=== PATIENT | male | born 1955 | race Caucasian/White ===

== ENCOUNTER 2016-06-11 14:25 | Observation (INO) | payer OTHER ==
[~2016-06-11] VITALS: Ht 172.7 cm; Wt 85.1 kg
[~2016-06-11 14:25] MED LIST: ASPCH81; EFF50 PO; MULT-506 PO; SIMV40TA2 PO
[2016-06-11 14:42] VITALS: Ht 172.7 cm; Wt 85.1 kg
[2016-06-11] MEDS ORDERED: LORA-741 PO (14:43)
[2016-06-11] MEDS ORDERED: SIMV20TA2 PO (14:43)
[2016-06-11] MEDS ORDERED: AMLO-110 PO (14:43)
[2016-06-11] MEDS ORDERED: FLUT0.15 NAE (14:43)
[2016-06-11] MEDS ORDERED: SODIUM CHLORIDE 0.9% 1000ML 1,000 ML IV STA (15:01)
[2016-06-11] MEDS ORDERED: LORAZEPAM 0.5 MG TAB SL STA (15:04)
[2016-06-11 15:16] LABS: BASO % 0.4 %; BASO ABS # 0.03 K/uL (0-0.2); COMPLETE YES; EOS % 1.7 %; HEMATOCRIT 42.9 % (42-52); IG% 0.3 %; LYMPH % 43.8 %; LYMPH ABS # 3.06 K/uL (1.2-3.4); MEAN CELL VOLUME 83.8 fL (80-100); MEAN CORPUSCULAR HEMOGLOBIN 29.7 pg (25-34); MEAN CORPUSCULAR HGB CONC 35.4 g/dl (32-36); MEAN PLATELET VOLUME 9.7 fL (7.4-10.4); MONO % 7.3 %; NEUT % 46.5 %; PLATELET COUNT 228 K/uL (130-400); RED BLOOD COUNT 5.12 M/uL (4.7-6.1); WHITE BLOOD COUNT 6.99 K/uL (4.8-10.8)
--- NOTE | 2016-06-11 15:22 | EMERGENCY ROOM VISIT NOTE ---
History First contact with patient: 14:38 Chief Complaint: SYNCOPE Stated Complaint: SYNCOPE Nursing Triage Summary: Patient was at the gym when he fell and had a syncople episode, gym staff reports patient fell and hit his head off the floor, when awoke patient reported severe chest pain and SOB, patient arrived ALS and is alert to person place and year but does not follow commands and has slurred speech and is stuttering having trouble finding words. When ALS arrived patient blood pressure was 88 systolically 800ml of fluid was adminitered enroute to [facility]. History of Present Illness The patient is a 61 year old male who presents to the Emergency Room with complaints of syncope. Patient is having difficulty communicating when I obtained the history, so collateral was obtained from daughter. Daughter notes that patient was weightlifting at the gym today, when all of a sudden he felt lightheaded. He proceeded to sit down. When he went to stand up , he lost conciousness and fell down. It is unclear whether he hit his head. At presents, he is having difficulty communicating. Nursing staff notes that he cannot vocalize anything apart from name and date and that he is unable to follow commands. Daughter notes that he has had syncope in the past but has never had any residual deficits. Daughter also notes that when he first arrived , he seems to have weakness on the left side of his face. At the time of his syncope, ambulance was called and he was brought to the ED. EMS notified daughter of his history. There was no mention of limb weakness, or shaking movements when he lost consciousness. Otherwise, daughter notes that he has been in reasonable good health. He has not had any recent illnesses. He currently denies headaches, only says "i want to rest" Review of Systems Review of systems was not obtainable due to patient condition Past Medical/Surgical History Medical Problems: (1) Anxiety (2) Depression (3) Syncopal episodes Family History No pertinent family history Social History Smoking Status: Never Smoker Smokeless Tobacco Use: No Alcohol Use: none Drug Use: none Current/Historical Medications Scheduled Amlodipine (Norvasc), 5 MG PO HS Fluticasone Propionate (Nasal) (Flonase Allergy Relief), 2 SPRAYS EMERY BID Simvastatin (Zocor), 20 MG PO QPM Scheduled PRN Lorazepam (Ativan), 0.5 MG PO BID PRN for Anxiety Allergies Coded Allergies: No Known Allergies (Verified Allergy, Unknown, 08/16/04) Physical Exam Vital Signs Date Time Temp Pulse Resp B/P Pulse Ox O2 Delivery O2 Flow Rate FiO2 06/11/16 16:41 36.6 69 16 130/80 100 Room Air 06/11/16 15:46 100 Room Air 06/11/16 14:42 66 18 117/72 100 Room Air 06/11/16 14:35 69 Pain Rating (0-10): 0 Physical Exam Constitutional: Vital signs as above were reviewed. Eyes: Pupils equal, round, and reactive to light. Extraocular muscles are intact. No proptosis. No photophobia. ENT: Mucous membranes are moist. Oropharynx is clear. No sinus tenderness. TMs are clear bilaterally. Cardiovascular: Heart with a regular rate and rhythm. Pulses are palpable and symmetric in all 4 extremities. No pedal edema appreciated. Respiratory: Lungs clear to auscultation bilaterally. No wheezes, rales, or rhonchi appreciated. No accessory muscle use. No retractions. No increased work of breathing. GI: Abdomen soft, nontender, nondistended. Normal active bowel sounds. No abdominal hernias appreciated. No rebound. No guarding. : No CVA tenderness appreciated. Musculoskeletal: No midline cervical or vertebral tenderness. No gross deformities. No bony tenderness. No calf swelling or tenderness. Integumentary: Warm, dry, no rashes appreciated. Neurological: Patient awake, alert, and oriented x 3 Inconsistently follows simple commands; able to give thumbs up but cannot lift both legs when asked to Patient can read words on card and name images; able to describes picture scene Cranial nerves 1- 12 grossly intact When asked to speak, patient alternatives between intelligible speech and fluent mumbling Lymph: No cervical lymphadenopathy appreciated. Medical Decision & Procedures ER Provider Diagnostic Interpretation: CT SCAN OF THE BRAIN WITHOUT IV CONTRAST CLINICAL HISTORY: Syncope. COMPARISON STUDY: MRI of the brain dated 03/07/2009. TECHNIQUE: Unenhanced axial CT scan of the brain is performed from the vertex to the skull base. Automated dose control exposure was utilized. CT DOSE: 537.48 mGy.cm FINDINGS: Brain parenchyma: There is minimal age-related volume loss. The brain parenchyma is otherwise normal in appearance. There is no hemorrhage, mass effect, or evidence of acute territorial ischemia by CT criteria. Barrientos-white matter is preserved. No extra-axial fluid collection is seen. Ventricles, sulci, cisterns: Normal in configuration. Intracranial vasculature: The visualized intracranial vasculature at the skull base is normal in appearance. Calvarium: Unremarkable. Sinuses and mastoids: The visualized paranasal sinuses are clear. The mastoid air cells are well pneumatized. Orbits: The bony orbits are grossly intact. IMPRESSION: No acute intracranial abnormality. Electronically signed by: Hermelindo Muir M.D. 06/11/2016 4:31 PM Dictated Date/Time: 06/11/2016 4:29 PM Laboratory Results 06/11/16 14:05 Red Blood Count 5.12, Mean Corpuscular Volume 83.8, Mean Corpuscular Hemoglobin 29.7, Mean Corpuscular Hemoglobin Concent 35.4, Mean Platelet Volume 9.7, Neutrophils (%) (Auto) 46.5, Lymphocytes (%) (Auto) 43.8, Monocytes (%) (Auto) 7.3, Eosinophils (%) (Auto) 1.7, Basophils (%) (Auto) 0.4, Neutrophils # (Auto) 3.25, Lymphocytes # (Auto) 3.06, Monocytes # (Auto) 0.51, Eosinophils # (Auto) 0.12, Basophils # (Auto) 0.03 06/11/16 14:05 Test 06/11/16 14:05 06/11/16 15:01 06/11/16 15:43 06/11/16 15:45 White Blood Count 6.99 K/uL (4.8-10.8) Red Blood Count 5.12 M/uL (4.7-6.1) Hemoglobin 15.2 g/dL (14.0-18.0) Hematocrit 42.9 % (42-52) Mean Corpuscular Volume 83.8 fL (80-100) Mean Corpuscular Hemoglobin 29.7 pg (25-34) Mean Corpuscular Hemoglobin Concent 35.4 g/dl (32-36) Platelet Count 228 K/uL (130-400) Mean Platelet Volume 9.7 fL (7.4-10.4) Neutrophils (%) (Auto) 46.5 % Lymphocytes (%) (Auto) 43.8 % Monocytes (%) (Auto) 7.3 % Eosinophils (%) (Auto) 1.7 % Basophils (%) (Auto) 0.4 % Neutrophils # (Auto) 3.25 K/uL (1.4-6.5) Lymphocytes # (Auto) 3.06 K/uL (1.2-3.4) Monocytes # (Auto) 0.51 K/uL (0.11-0.59) Eosinophils # (Auto) 0.12 K/uL (0-0.5) Basophils # (Auto) 0.03 K/uL (0-0.2) RDW Standard Deviation 39.4 fL (36.4-46.3) RDW Coefficient of Variation 13.1 % (11.5-14.5) Immature Granulocyte % (Auto) 0.3 % Immature Granulocyte # (Auto) 0.02 K/uL (0.00-0.02) Erythrocyte Sedimentation Rate 13 mm/hr (0-14) Prothrombin Time 10.7 SECONDS (9.0-12.0) Prothromb Time International Ratio 1.0 (0.9-1.1) Activated Partial Thromboplast Time 20.9 SECONDS (21.0-31.0) Partial Thromboplastin Ratio 0.8 D-Dimer 300 ug/L FEU (0-500) Anion Gap 18.0 mmol/L (3-11) Est Creatinine Clear Calc Drug Dose 50.2 ml/min Estimated GFR () 52.4 Estimated GFR (Non- 45.2 BUN/Creatinine Ratio 11.1 (10-20) Calcium Level 9.9 mg/dl (8.5-10.1) Total Bilirubin 0.4 mg/dl (0.2-1) Direct Bilirubin < 0.1 mg/dl (0-0.2) Aspartate Amino Transf (AST/SGOT) 28 U/L (15-37) Alanine Aminotransferase (ALT/SGPT) 41 U/L (12-78) Alkaline Phosphatase 63 U/L (45-117) Total Creatine Kinase 70 U/L (39-308) Creatine Kinase MB 1.2 ng/ml (0.5-3.6) Creatine Kinase MB Ratio 1.7 (0-3.0) Troponin I < 0.015 ng/ml (0-0.045) Total Protein 7.2 gm/dl (6.4-8.2) Albumin 3.9 gm/dl (3.4-5.0) Thyroid Stimulating Hormone (TSH) 2.770 uIu/ml (0.300-4.500) Acetaminophen Level < 2 ug/ml (10-30) Bedside Glucose 109 mg/dl (70-99) Ammonia 20.0 umol/L (11-32) Test 06/11/16 15:46 Ethyl Alcohol mg/dL < 3.0 mg/dl (0-3) Medications Administered Medications (Trade) Dose Ordered Sig/Tanya Route Start Time Stop Time Status Last Admin Dose Admin Sodium Chloride (Nss 1000ml) 1,000 ml @ 999 mls/hr Q1H1M STAT IV 06/11/16 15:01 06/11/16 16:01 DC 06/11/16 15:40 999 MLS/HR Lorazepam (Ativan Tab) 0.5 mg NOW STAT SL 06/11/16 15:04 06/11/16 15:05 DC 06/11/16 15:34 0.5 MG ECG Change: Normal sinus rhythm Prolonged QT Abnormal ECG When compared with ECG of 09-DEC-2009 15:17, No significant change was found Confirmed by BILLY MEZA ([id number]) on 06/11/2016 5:01:24 PM ED Course 14:30 - Nurse arrives in Physicians office, notes that patient is not responsive 14:32 - I arrive in the room, try to rouse patient; patient wakes up immediately Neurological abnormalities noted on clinical examination 14:55 - Patient seen with Dr. Correia Clinical status improving; patient able to vocalize more fluently; does continue to have periods of non-sensical speech 15:00 - Orders placed by Dr. Correia CBC, CMP, Coags, ESR Cardiac enzymes TSH, Ammonia level Urine drug screen, Tylenol Level CT head without contrast 1 L NSS 0.9 bolus ; 1 mg Ativan IV 16:30 - CT brain reviewed, normal 17:30 - Decision to admit Signed out case to [facility] [place] hospitalist; agree to admit patient for further evaluation Medical Decision History obtained, Physical examination performed and EMR reviewed. Differential diagnosis for altered mental status post-syncope include, CVA, TIA , Encephalopathy (drug induced vs metabolic), Seizures, Post-ictal status, intracranial mass, meningitis, encephalitis, multiple sclerosis. Patient presents with altered mental status following and episode of syncope. Patient presented initially unresponsive but hemodynamically stable, progressed to being completely responsive. He did struggle initially with aphasia, which seems to have resolved over a period 3 hours. There was no dense deficit requiring telemedicine stroke protocol. Patient does have a history of syncope, though it has been many years since his last episode. In addition, this is the first time he has regained conciousness with residual dysphasia and altered mental status. CBC was within normal limits. ESR was normal. BMP did note a K of 3.2 and Cr of 1.6 (could not obtain baseline in in EMR). TSH level is WNL CT brain was done and was negative. Review of EMR notes that he has had stroke work-up previously and has had carotid dopplers with MRI. These did not show acute processes at the time, but these were done > 7 years previously. Observation was discussed with patient who is agreeable. Case was discussed with [facility] [place] hospitalist and patient was awaiting evaluation in stable condition. Impression Primary Impression: Transient ischemic attack (TIA) Departure Information Dispostion Being Evaluated By Hospitalist Condition GOOD Referrals Mihir Bardales M.D. (PCP) Patient Instructions My [facility]
[2016-06-11 15:23] LABS: ALT/SGPT 41 U/L (12-78); BLOOD UREA NITROGEN 18 mg/dl (7-18); BUN/CREATININE RATIO 11.1 (10-20); CALCIUM 9.9 mg/dl (8.5-10.1); CARBON DIOXIDE 17 mmol/L (21-32); CHLORIDE 107 mmol/L (98-107); GLUCOSE 116 mg/dl (70-99); POTASSIUM 3.2 mmol/L (3.5-5.1); SODIUM 142 mmol/L (136-145)
[2016-06-11 15:30] LABS: PARTIAL THROMBOPLASTIN RATIO 0.8; PROTHROMBIN TIME (PATIENT) 10.7 SECONDS (9.0-12.0)
[2016-06-11 15:34] LABS: ALKALINE PHOSPHATASE 63 U/L (45-117); AST/SGOT 28 U/L (15-37); CKMB/CK RATIO 1.7 (0-3.0)
--- NOTE | 2016-06-11 15:35 | DIAGNOSTIC IMAGING REPORT ---
CHEST ONE VIEW PORTABLE CLINICAL HISTORY: Fever and sepsis COMPARISON STUDY: No previous studies for comparison. FINDINGS: The heart is normal in size. There is mild aortic tortuosity/ectasia. There is mild interstitial thickening. There is no lobar consolidation. There are no pleural effusions.[ IMPRESSION: Mild interstitial thickening, finding of uncertain chronicity. No evidence of lobar consolidation Electronically signed by: Jules Jackson M.D. 06/11/2016 3:33 PM Dictated Date/Time: 06/11/2016 3:32 PM
--- NOTE | 2016-06-11 16:33 | DIAGNOSTIC IMAGING REPORT ---
CT SCAN OF THE BRAIN WITHOUT IV CONTRAST CLINICAL HISTORY: Syncope. COMPARISON STUDY: MRI of the brain dated 03/07/2009. TECHNIQUE: Unenhanced axial CT scan of the brain is performed from the vertex to the skull base. Automated dose control exposure was utilized. CT DOSE: 537.48 mGy.cm FINDINGS: Brain parenchyma: There is minimal age-related volume loss. The brain parenchyma is otherwise normal in appearance. There is no hemorrhage, mass effect, or evidence of acute territorial ischemia by CT criteria. Barrientos-white matter is preserved. No extra-axial fluid collection is seen. Ventricles, sulci, cisterns: Normal in configuration. Intracranial vasculature: The visualized intracranial vasculature at the skull base is normal in appearance. Calvarium: Unremarkable. Sinuses and mastoids: The visualized paranasal sinuses are clear. The mastoid air cells are well pneumatized. Orbits: The bony orbits are grossly intact. IMPRESSION: No acute intracranial abnormality. Electronically signed by: Hermelindo Muir M.D. 06/11/2016 4:31 PM Dictated Date/Time: 06/11/2016 4:29 PM
--- NOTE | 2016-06-11 17:27 | EMERGENCY ROOM VISIT NOTE ---
History Report prepared by Tara: Reinaldo Chavis Under the Supervision of: Dr. Antonio Correia D.O. First contact with patient: 14:38 Chief Complaint: SYNCOPE Stated Complaint: SYNCOPE Nursing Triage Summary: Patient was at the gym when he fell and had a syncople episode, gym staff reports patient fell and hit his head off the floor, when awoke patient reported severe chest pain and SOB, patient arrived ALS and is alert to person place and year but does not follow commands and has slurred speech and is stuttering having trouble finding words. When ALS arrived patient blood pressure was 88 systolically 800ml of fluid was adminitered enroute to [facility]. History of Present Illness The patient is a 61 year old male who presents to the Emergency Room after a syncopal episode that occurred about 2 hours prior to arrival. The patient was exercising at [employer] when he blacked out. When he woke up he was on the floor. Per the staff at the gym, the patient hit his head when he fell. According to them, the patient complained of chest pain and shortness of breath when he woke up. Per patient's daughter, the gym staff told her that the patient had felt lightheaded and dizzy. He sat down and felt a little better. When he up went to stand up, he had a syncopal episode. Per ALS, the patient had slurred speech, was stuttering, and having trouble finding words. He was oriented to person, place, and time. En route to the hospital, he was administered 800 ml of fluid. He denies headaches at this time. Pt denies recent illness, fevers, or cough. 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 A total of 10 systems reviewed and were otherwise negative. Past Medical & Surgical Medical Problems: (1) Anxiety (2) Depression (3) Syncopal episodes Family History No pertinent family history Social History Smoking Status: Never Smoker Marital Status: Housing Status: lives with family Occupation Status: retired Current/Historical Medications Scheduled Amlodipine (Norvasc), 5 MG PO HS Fluticasone Propionate (Nasal) (Flonase Allergy Relief), 2 SPRAYS EMERY BID Simvastatin (Zocor), 20 MG PO QPM Scheduled PRN Lorazepam (Ativan), 0.5 MG PO BID PRN for Anxiety Allergies Coded Allergies: No Known Allergies (Verified Allergy, Unknown, 08/16/04) Physical Exam Vital Signs Date Time Temp Pulse Resp B/P Pulse Ox O2 Delivery O2 Flow Rate FiO2 06/11/16 16:41 36.6 69 16 130/80 100 Room Air 06/11/16 15:46 100 Room Air 06/11/16 14:42 66 18 117/72 100 Room Air 06/11/16 14:35 69 Physical Exam VITAL SIGNS: were reviewed as above. GENERAL:Non-toxic in appearance. SKIN: Warm dry and pink. HEAD: Normocephalic and atraumatic. OROPHARYNX: Is clear and moist NECK: Supple without lymphadenopathy or meningismus. LUNGS: clear. HEART: Regular rate and rhythm. ABDOMEN: Soft and nontender. EXTREMITIES: Warm and well perfused. NEUROLOGICALLY: Awake alert and oriented without focal deficit. Cranial nerves 2 -12 are intact. There is no pronator drift. Cerebellar testing is within normal limits. There is no nystagmus. There is no facial droop. Speech, had a little difficulty with words at times. Vision is grossly normal. MUSCULOSKELETAL: Good muscle tone. No evidence of trauma. Medical Decision & Procedures ER Provider Diagnostic Interpretation: X ray results and stated below per my interpretation and radiologist interpretation. Other radiology results and stated below per my review and radiologist interpretation: CHEST ONE VIEW PORTABLE CLINICAL HISTORY: Fever and sepsis COMPARISON STUDY: No previous studies for comparison. FINDINGS: The heart is normal in size. There is mild aortic tortuosity/ectasia. There is mild interstitial thickening. There is no lobar consolidation. There are no pleural effusions.[ IMPRESSION: Mild interstitial thickening, finding of uncertain chronicity. No evidence of lobar consolidation Electronically signed by: Jules Jackson M.D. 06/11/2016 3:33 PM Dictated Date/Time: 06/11/2016 3:[address] SCAN OF THE BRAIN WITHOUT IV CONTRAST CLINICAL HISTORY: Syncope. COMPARISON STUDY: MRI of the brain dated 03/07/2009. TECHNIQUE: Unenhanced axial CT scan of the brain is performed from the vertex to the skull base. Automated dose control exposure was utilized. CT DOSE: 537.48 mGy.cm FINDINGS: Brain parenchyma: There is minimal age-related volume loss. The brain parenchyma is otherwise normal in appearance. There is no hemorrhage, mass effect, or evidence of acute territorial ischemia by CT criteria. Barrientos-white matter is preserved. No extra-axial fluid collection is seen. Ventricles, sulci, cisterns: Normal in configuration. Intracranial vasculature: The visualized intracranial vasculature at the skull base is normal in appearance. Calvarium: Unremarkable. Sinuses and mastoids: The visualized paranasal sinuses are clear. The mastoid air cells are well pneumatized. Orbits: The bony orbits are grossly intact. IMPRESSION: No acute intracranial abnormality. Electronically signed by: Hermelindo Muir M.D. 06/11/2016 4:31 PM Dictated Date/Time: 06/11/2016 4:29 PM Laboratory Results 06/11/16 14:05 Red Blood Count 5.12, Mean Corpuscular Volume 83.8, Mean Corpuscular Hemoglobin 29.7, Mean Corpuscular Hemoglobin Concent 35.4, Mean Platelet Volume 9.7, Neutrophils (%) (Auto) 46.5, Lymphocytes (%) (Auto) 43.8, Monocytes (%) (Auto) 7.3, Eosinophils (%) (Auto) 1.7, Basophils (%) (Auto) 0.4, Neutrophils # (Auto) 3.25, Lymphocytes # (Auto) 3.06, Monocytes # (Auto) 0.51, Eosinophils # (Auto) 0.12, Basophils # (Auto) 0.03 06/11/16 14:05 Test 06/11/16 14:05 06/11/16 15:01 06/11/16 15:43 06/11/16 15:45 White Blood Count 6.99 K/uL (4.8-10.8) Red Blood Count 5.12 M/uL (4.7-6.1) Hemoglobin 15.2 g/dL (14.0-18.0) Hematocrit 42.9 % (42-52) Mean Corpuscular Volume 83.8 fL (80-100) Mean Corpuscular Hemoglobin 29.7 pg (25-34) Mean Corpuscular Hemoglobin Concent 35.4 g/dl (32-36) Platelet Count 228 K/uL (130-400) Mean Platelet Volume 9.7 fL (7.4-10.4) Neutrophils (%) (Auto) 46.5 % Lymphocytes (%) (Auto) 43.8 % Monocytes (%) (Auto) 7.3 % Eosinophils (%) (Auto) 1.7 % Basophils (%) (Auto) 0.4 % Neutrophils # (Auto) 3.25 K/uL (1.4-6.5) Lymphocytes # (Auto) 3.06 K/uL (1.2-3.4) Monocytes # (Auto) 0.51 K/uL (0.11-0.59) Eosinophils # (Auto) 0.12 K/uL (0-0.5) Basophils # (Auto) 0.03 K/uL (0-0.2) RDW Standard Deviation 39.4 fL (36.4-46.3) RDW Coefficient of Variation 13.1 % (11.5-14.5) Immature Granulocyte % (Auto) 0.3 % Immature Granulocyte # (Auto) 0.02 K/uL (0.00-0.02) Erythrocyte Sedimentation Rate 13 mm/hr (0-14) Prothrombin Time 10.7 SECONDS (9.0-12.0) Prothromb Time International Ratio 1.0 (0.9-1.1) Activated Partial Thromboplast Time 20.9 SECONDS (21.0-31.0) Partial Thromboplastin Ratio 0.8 D-Dimer 300 ug/L FEU (0-500) Anion Gap 18.0 mmol/L (3-11) Est Creatinine Clear Calc Drug Dose 50.2 ml/min Estimated GFR () 52.4 Estimated GFR (Non- 45.2 BUN/Creatinine Ratio 11.1 (10-20) Calcium Level 9.9 mg/dl (8.5-10.1) Total Bilirubin 0.4 mg/dl (0.2-1) Direct Bilirubin < 0.1 mg/dl (0-0.2) Aspartate Amino Transf (AST/SGOT) 28 U/L (15-37) Alanine Aminotransferase (ALT/SGPT) 41 U/L (12-78) Alkaline Phosphatase 63 U/L (45-117) Total Creatine Kinase 70 U/L (39-308) Creatine Kinase MB 1.2 ng/ml (0.5-3.6) Creatine Kinase MB Ratio 1.7 (0-3.0) Troponin I < 0.015 ng/ml (0-0.045) Total Protein 7.2 gm/dl (6.4-8.2) Albumin 3.9 gm/dl (3.4-5.0) Thyroid Stimulating Hormone (TSH) 2.770 uIu/ml (0.300-4.500) Acetaminophen Level < 2 ug/ml (10-30) Bedside Glucose 109 mg/dl (70-99) Ammonia 20.0 umol/L (11-32) Test 06/11/16 15:46 Ethyl Alcohol mg/dL < 3.0 mg/dl (0-3) Laboratory results as stated above per my review. Medications Administered Medications (Trade) Dose Ordered Sig/Tanya Route Start Time Stop Time Status Last Admin Dose Admin Sodium Chloride (Nss 1000ml) 1,000 ml @ 999 mls/hr Q1H1M STAT IV 06/11/16 15:01 06/11/16 16:01 DC 06/11/16 15:40 999 MLS/HR Lorazepam (Ativan Tab) 0.5 mg NOW STAT SL 06/11/16 15:04 06/11/16 15:05 DC 06/11/16 15:34 0.5 MG ECG Indication: syncope Rate (beats per minute): 69 Rhythm: normal sinus Findings: no acute ischemic change, no ectopy ED Course 1501: Ordered NSS 1000 ml @ 999 mls/hr iV. 1502: Previous medical records were reviewed. The patient was evaluated in room B8. A complete history and physical examination was performed. 1504: Ordered Ativan Tab 0.5 mg SL. 1624: On reevaluation, the patient is resting comfortably. I discussed the results and findings with the patient. He verbalized agreement of the treatment plan. The patient was discharged home. Medical Decision Differential includes acute coronary syndrome, myocardial infarction, CVA, TIA, anemia, infection, pneumonia, UTI, pyelonephritis, poor nutrition, dehydration, electrolyte disturbance,hypoglycemia. This is a 61-year-old male who presents to the ED with a chief complaint of a syncopal episode and some mild confusion following this. Further details listed above. The patient was at the gym working out when this occurred. He does have history of passing out in the past. He was initially evaluated by the resident. His initial exam was noted. The patient was not following commands initially. When I examined the patient shortly thereafter, the patient had a full stroke evaluation and did not meet any significant criteria for stroke. He was all 4 extremities with purpose. Negative cerebellar testing. He was able to read words and described pictures without difficulty. He knows where he is. He knows what he was doing when his symptoms initially started. A chest x-ray did not show any acute disease. CBC is normal. His sedimentation rate was normal. D-dimer is negative. Creatinine is 1.6. Complete metabolic panel is unremarkable. Troponin is negative. TSH was normal. CT scan of the brain did not show any acute process. The patient's symptoms seemed to improve this point. Exact cause of his symptoms are unclear. The patient was seen with the resident. We will speak with the hospitalist for observation. Impression Primary Impression: Syncope Additional Impression: Anxiety Scribe Attestation The scribe's documentation has been prepared under my direction and personally reviewed by me in its entirety. I confirm that the note above accurately reflects all work, treatment, procedures, and medical decision making performed by me. Departure Information Referrals Mihir Bardales M.D. (PCP) Forms HOME CARE DOCUMENTATION FORM, IMPORTANT VISIT INFORMATION Patient Instructions My [facility] Problem Qualifiers
[2016-06-11] MEDS ORDERED: ACETAMINOPHEN 325 MG TAB PO PRN (18:30)
[2016-06-11] MEDS ORDERED: ONDANSETRON INJ 2 MG/ML 2 ML VIAL IV PRN (18:30)
[2016-06-11] MEDS ORDERED: ASPIRIN 324 MG CHEW PO STA (18:41)
[2016-06-11] MEDS ORDERED: ATORVASTATIN 40 MG TAB PO ONE (18:45)
[2016-06-11] MEDS ORDERED: PHARMACIST DISCHARGE MED REC CONSULT PRN (18:45)
[2016-06-11] MEDS ORDERED: EFFSR75 PO (18:48)
[2016-06-11] MEDS ORDERED: POTASSIUM CHLORIDE 10 MEQ TABCR PO ONE (19:00)
[2016-06-11] MEDS ORDERED: LORAZEPAM 0.5 MG TAB PO PRN (19:00)
[2016-06-11] MEDS ORDERED: ASPIRIN 324 MG CHEW ONE (19:10)
[2016-06-11] MEDS ORDERED: POTASSIUM CHLORIDE 10 MEQ TABCR ONE (19:10)
--- NOTE | 2016-06-11 19:17 | History and Physical ---
History & Physical Date & Time of Service: Jun 11, 2016 at 18:53 Chief Complaint: Syncope Primary Care Physician: Mihir Bardales M.D. History of Present Illness Source: patient, family Patient is a 61 yr old male with PMH of HTN, HLP, anxiety disorder presents for evaluation of a syncopal episode. Patient is known to be exercising at [employer] today and had suddenly felt light headed and lost LOC for unknown duration. Patient had hit his head as a result of his fall and currently has mild soreness. Associated symptoms include Slurred speech, nausea, vomiting, SOB during the episode which currently resolved. Patient reports slurred speech lasted for about 2 hours which currently resolved. Denies any history of headache, vertigo, blurry vision, chest pain, bowel/bladder incontinence. Patient had a remote history of syncopal episode secondary to dehydration in the past and also had taste tester which was uneventful. He denies any weakness, numbness, tingling but reports mild soreness of left elbow which is bruised from fall. Also denies any fever, chills, abd pain, change in bowel/ bladder habits. Past Medical/Surgical History Medical Problems: (1) Anxiety Status: Chronic (2) Depression Status: Chronic (3) Syncopal episodes Status: Resolved No Surgeries in the past Family History No pertinent family history Social History Smoking Status: Never Smoker Smokeless Tobacco Use: No Alcohol Use: socially Drug Use: none Marital Status: Occupational Status: retired Immunizations History of Tetanus Vaccine?: given today History of Pneumococcal: No History of Hepatitis B Vaccine: Yes Multi-Drug Resistant Organisms History of MDRO: No Allergies Coded Allergies: No Known Allergies (Verified Allergy, Unknown, 08/16/04) Home Medications Scheduled Amlodipine (Norvasc), 5 MG PO HS Fluticasone Propionate (Nasal) (Flonase Allergy Relief), 2 SPRAYS EMERY BID Simvastatin (Zocor), 20 MG PO QPM Venlafaxine Hcl (Effexor Extended Rel), 75 MG PO DAILY Scheduled PRN Lorazepam (Ativan), 0.5 MG PO BID PRN for Anxiety Review of Systems See HPI for pertinent positives & negatives. A total of 10 systems reviewed and were otherwise negative. Physical Exam Vital Signs Date Time Temp Pulse Resp B/P Pulse Ox O2 Delivery O2 Flow Rate FiO2 06/11/16 16:41 36.6 69 16 130/80 100 Room Air 06/11/16 15:46 100 Room Air 06/11/16 14:42 66 18 117/72 100 Room Air 06/11/16 14:35 69 General Appearance: WD/WN, no apparent distress Head: normocephalic, atraumatic, + pertinent finding (Mild soreness of back of head) Eyes: normal inspection, PERRL, EOMI, sclerae normal ENT: normal ENT inspection, hearing grossly normal Neck: supple, no adenopathy, no JVD, no carotid bruits, trachea midline Respiratory/Chest: chest non-tender, lungs clear, normal breath sounds, no respiratory distress, no accessory muscle use Cardiovascular: regular rate, rhythm, no edema, no JVD, no murmur Abdomen/GI: normal bowel sounds, non tender, soft Back: normal inspection Extremities/Musculoskelatal: normal inspection, no calf tenderness, no pedal edema Neurologic/Psych: maintenance aide II-XII nml as tested, no motor/sensory deficits, alert, normal mood/affect, oriented x 3, + pertinent finding (Currently slurred speech resolved) Skin: normal color, warm/dry Diagnostics Laboratory Results Results Past 24 Hours Test 06/11/16 14:05 06/11/16 15:01 06/11/16 15:43 06/11/16 15:45 Range/Units White Blood Count 6.99 4.8-10.8 K/uL Red Blood Count 5.12 4.7-6.1 M/uL Hemoglobin 15.2 14.0-18.0 g/dL Hematocrit 42.9 42-52 % Mean Corpuscular Volume 83.8 80-100 fL Mean Corpuscular Hemoglobin 29.7 25-34 pg Mean Corpuscular Hemoglobin Concent 35.4 32-36 g/dl Platelet Count 228 130-400 K/uL Mean Platelet Volume 9.7 7.4-10.4 fL Neutrophils (%) (Auto) 46.5 % Lymphocytes (%) (Auto) 43.8 % Monocytes (%) (Auto) 7.3 % Eosinophils (%) (Auto) 1.7 % Basophils (%) (Auto) 0.4 % Neutrophils # (Auto) 3.25 1.4-6.5 K/uL Lymphocytes # (Auto) 3.06 1.2-3.4 K/uL Monocytes # (Auto) 0.51 0.11-0.59 K/uL Eosinophils # (Auto) 0.12 0-0.5 K/uL Basophils # (Auto) 0.03 0-0.2 K/uL RDW Standard Deviation 39.4 36.4-46.3 fL RDW Coefficient of Variation 13.1 11.5-14.5 % Immature Granulocyte % (Auto) 0.3 % Immature Granulocyte # (Auto) 0.02 0.00-0.02 K/uL Erythrocyte Sedimentation Rate 13 0-14 mm/hr Prothrombin Time 10.7 9.0-12.0 SECONDS Prothromb Time International Ratio 1.0 0.9-1.1 Activated Partial Thromboplast Time 20.9 21.0-31.0 SECONDS Partial Thromboplastin Ratio 0.8 D-Dimer 300 0-500 ug/L FEU Sodium Level 142 136-145 mmol/L Potassium Level 3.2 3.5-5.1 mmol/L Chloride Level 107 98-107 mmol/L Carbon Dioxide Level 17 21-32 mmol/L Anion Gap 18.0 3-11 mmol/L Blood Urea Nitrogen 18 7-18 mg/dl Creatinine 1.60 0.60-1.40 mg/dl Est Creatinine Clear Calc Drug Dose 50.2 ml/min Estimated GFR () 52.4 Estimated GFR (Non- 45.2 BUN/Creatinine Ratio 11.1 10-20 Random Glucose 116 70-99 mg/dl Calcium Level 9.9 8.5-10.1 mg/dl Total Bilirubin 0.4 0.2-1 mg/dl Direct Bilirubin < 0.1 0-0.2 mg/dl Aspartate Amino Transf (AST/SGOT) 28 15-37 U/L Alanine Aminotransferase (ALT/SGPT) 41 12-78 U/L Alkaline Phosphatase 63 45-117 U/L Total Creatine Kinase 70 39-308 U/L Creatine Kinase MB 1.2 0.5-3.6 ng/ml Creatine Kinase MB Ratio 1.7 0-3.0 Troponin I < 0.015 0-0.045 ng/ml Total Protein 7.2 6.4-8.2 gm/dl Albumin 3.9 3.4-5.0 gm/dl Thyroid Stimulating Hormone (TSH) 2.770 0.300-4.500 uIu/ml Acetaminophen Level < 2 10-30 ug/ml Bedside Glucose 109 70-99 mg/dl Ammonia 20.0 11-32 umol/L Test 06/11/16 15:46 Range/Units Ethyl Alcohol mg/dL < 3.0 0-3 mg/dl Diagnostic Radiology CT head: No acute intracranial abnormality CXR: Mild interstitial thickening, finding of uncertain chronicity. No evidence of lobar consolidation EKG EKG: NSR, Prolonged QT Impression Assessment and Plan Stroke Like symptoms/Syncope: R/O CVA MRI brain from 2009:Tiny lacunar infarct of left cerebral hemisphere Admit in Tele CT head: showed no acute pathology Stroke work up including lipid panel, A1C, MRI Brain, Carotid duplex , ECHO Speech and swallow eval Start aspirin, Lipitor Neuro checks, Neurology consult PT/OT Consider cardiology consult if stroke ruled out LYDIA: Likely prerenal Hold ACEI, ARBs Cr:1.6 Avoid nephro toxic agents Start IV fluids Monitor renal function Hypokalemia: Replace and monitor Hypertension: Stable Hyperlipidemia: Check lipid panel Anxiety disorder: Stable Continue home meds DVT Px: Heparin SQ Code Status: Full code VTE Prophylaxis VTE Risk Assessment Done? Y/N: Yes Risk Level: Low
[2016-06-11 20:20] VITALS: O2SAT 96
--- NOTE | 2016-06-11 20:50 | DIAGNOSTIC IMAGING REPORT ---
MRI OF THE BRAIN WITHOUT IV CONTRAST CLINICAL HISTORY: Dizziness. Syncope. COMPARISON STUDY: CT of the brain dated 06/11/2016. MRI of the brain dated 03/07/2009. TECHNIQUE: MRI of the brain was performed utilizing various T1 and T2-weighted sequences in the axial, sagittal, and coronal planes. IV contrast was not administered for this examination. FINDINGS: Brain parenchyma: There is minimal subcortical and periventricular microangiopathic change. The brain parenchyma is otherwise normal in appearance. There is no hemorrhage or mass effect. There is no restricted diffusion to suggest acute ischemia. A small chronic lacunar infarct is identified in the left cerebellar hemisphere. Barrientos-white matter differentiation is preserved. No extra-axial fluid collection is seen. The cerebellar tonsils are normal in configuration. Ventricles, sulci, and cisterns: Normal in configuration. Pituitary and sella: Unremarkable. Intracranial vasculature: Normal flow voids are maintained at the skull base. Orbits: The bony orbits are grossly intact. Orbital contents are normal in appearance. Sinuses and mastoids: Clear. Calvarium: Unremarkable. Cervical cord: Partially visualized cervical spinal cord is normal in morphology and signal intensity. Soft tissues: There is a 1.3 cm T1 and T2 hyperintense ovoid lesion present in the tongue. This is best seen on sagittal image #10 of 23. This was also seen on the 2009 examination and is of doubtful significance. IMPRESSION: 1. No acute intracranial abnormality. 2. There is a 1.3 cm ovoid lesion in the tongue. This was also seen in 2009 and is of indeterminant but doubtful significance. Electronically signed by: Hermelindo Muir M.D. 06/11/2016 8:49 PM Dictated Date/Time: 06/11/2016 8:41 PM
[2016-06-11] MEDS: SODIUM CHLORIDE 0.9% 1000ML 1,000 ML IV SCH (20:57)
[2016-06-11] MEDS: FLUTICASONE PROPIONATE NA SPR 16 GM BTL NAE SCH (20:58)
[2016-06-11 21:02] VITALS: BP 149/93; PULSE 72; TEMP 36.7
[2016-06-11] MEDS ORDERED: IV FLUIDS COMPLETED PRN (21:30)
[2016-06-11] MEDS: HEPARIN SOD 5000 UNIT/0.5 ML CARP SQ SCH (21:35)
[2016-06-11 22:57] VITALS: BP 148/83; PULSE 77; TEMP 36.9; O2SAT 95
[2016-06-12 04:29] VITALS: BP 125/75; PULSE 72; TEMP 36.8; O2SAT 96
[2016-06-12] MEDS: SODIUM CHLORIDE 0.9% 1000ML 1,000 ML IV SCH ×2 (04:30→14:00)
[2016-06-12] MEDS: HEPARIN SOD 5000 UNIT/0.5 ML CARP SQ SCH ×2 (06:06→14:00)
[2016-06-12 06:28] LABS: ESTIMATED AVERAGE GLUCOSE 117 mg/dl; HA1C FLAG Normal (Normal)
[2016-06-12 06:45] LABS: BASO % 0.4 %; BASO ABS # 0.03 K/uL (0-0.2); COMPLETE YES; EOS % 2.3 %; HEMATOCRIT 39.4 % (42-52); IG% 0.1 %; LYMPH % 27.3 %; LYMPH ABS # 2.06 K/uL (1.2-3.4); MEAN CELL VOLUME 86.2 fL (80-100); MEAN CORPUSCULAR HEMOGLOBIN 29.1 pg (25-34); MEAN CORPUSCULAR HGB CONC 33.8 g/dl (32-36); MEAN PLATELET VOLUME 8.9 fL (7.4-10.4); MONO % 7.9 %; PLATELET COUNT 166 K/uL (130-400); RED BLOOD COUNT 4.57 M/uL (4.7-6.1); WHITE BLOOD COUNT 7.55 K/uL (4.8-10.8)
--- NOTE | 2016-06-12 07:13 | DIAGNOSTIC IMAGING REPORT ---
BILATERAL CAROTID DOPPLER STUDY HISTORY: Stroke symptoms. Dizziness. COMPARISON: None. TECHNIQUE: Real-time, grayscale, and color Doppler sonography of the carotid arteries was performed. Imaging reviewed in the transverse and longitudinal planes. All measurements were calculated based on NASCET criteria. FINDINGS: Antegrade flow is seen in the bilateral vertebral arteries. The brachial pressures were not obtained due to the patient's indwelling intravenous line. The peak systolic velocity within the right ICA is 63 cm/s. The right systolic ratio is 0.7. The peak systolic velocity within the left ICA is 65 cm/s. The left systolic ratio is 0.6. IMPRESSION: No hemodynamically significant stenosis seen within the carotid arteries. Electronically signed by: Ulises Deglado M.D. 06/12/2016 7:11 AM Dictated Date/Time: 06/12/2016 7:09 AM
[2016-06-12 07:16] LABS: BUN/CREATININE RATIO 12.5 (10-20); CALCIUM 8.5 mg/dl (8.5-10.1); CREATININE 1.1 mg/dl (0.60-1.40); POTASSIUM 4.1 mmol/L (3.5-5.1)
[2016-06-12 07:42] VITALS: BP 117/72; PULSE 63; TEMP 36.6; O2SAT 96
[2016-06-12] MEDS: FLUTICASONE PROPIONATE NA SPR 16 GM BTL NAE SCH (08:00)
[2016-06-12] MEDS ORDERED: ASPIRIN 81 MG ECTAB PO SCH (09:00)
[2016-06-12] MEDS ORDERED: ATORVASTATIN 40 MG TAB PO SCH (09:00)
[2016-06-12] MEDS ORDERED: VENLAFAXINE HCL XR 75 MG CAPXR PO SCH (09:00)
[2016-06-12 09:49] LABS: URINE APPEARANCE CLEAR (CLEAR); URINE BILIRUBIN NEG (NEG); URINE COLOR YELLOW; URINE EPITHELIAL CELL AUTO 0-5 /lpf (0-5); URINE NITRITE NEG (NEG); URINE PH 6.5 (4.5-7.5); URINE SPECIFIC GRAVITY 1.011 (1.000-1.030); UROBILINOGEN NEG (NEG); ZZUR CULT IF INDIC CLEAN CATCH NO
[2016-06-12 10:06] LABS: MANUAL MICROSCOPIC REQUIRED? NO; REVIEW REQ? NO
[2016-06-12 10:32] LABS: BENZODIAZEPINE, URINE NEG (NEG); COCAINE,URINE NEG (NEG); PHENCYCLIDINE, URINE NEG (NEG)
[2016-06-12 11:35] VITALS: BP 130/76; PULSE 68; O2SAT 95
--- NOTE | 2016-06-12 13:53 | ELECTROENCEPHALOGRAPH REPORT ---
REQUESTING PHYSICIAN: Dr. De La Rosa. CLINICAL DIAGNOSIS: Syncope versus seizure. EEG DIAGNOSIS: Essentially normal during wakefulness. DESCRIPTION OF TRACING: This EEG was done as a bedside recording and is of good technical quality with few or no muscle or movement artifacts. photic stimulation was performed hyperventilation was not. Drowsiness and light sleep were not recorded. During wakefulness there is no evidence for a normal appearing background rhythm in the alpha range of up to 9-10 hertz of maximum frequency and 30-40 microvolts of maximum amplitude. This activity is maximum in posterior head regions and is bilaterally symmetrical . Polymorphic mid frequency theta activity is seen over all head regions without focal or regional predominance. Anterior head regions maximal bilaterally symmetrical low voltage fast activity is present. Photic stimulation provokes a modest driving response without a photomyogenic or photoparoxysmal component. At no time during the waking tracing is there evidence for potentially epileptogenic activity in the form of polyspike or spike wave bursts, focal sharp waves or focal spikes INTERPRETATION: This EEG is essentially normal during wakefulness without evidence for a focal or generalized encephalopathy and without evidence for potential epileptogenic activity. MTDD
--- NOTE | 2016-06-12 14:49 | Neurology Consultation ---
Neurology Consultation Date of Consultation: Jun 12, 2016. Attending Physician: Remi Pettit MD Primary Care Physician: Mihir Bardales M.D. Reason for Consultation: stroke like symptoms History of Present Illness Source: patient, family Carlos Enrique is a 61 year old male who has a H depression anxiety and syncope. He states he was at [employer] and he felt light headed and sat down. He got up to move and hit his head on a desk. He had a brief LOC and when he woke up he had a hard time forming his words. He knew what he wanted to say but couldn' t say it. He thinks the slurred speech loss of words continued for about 2 hours then resolved. His blood pressure was somewhat elevated. He states he did have some vomiting and his head was sore from bumping it. He states he has had syncope in the past. His son is in the room and states he is not aware of any stroke history prior. Denies CP, SOB, abdominal pain, weakness, numbness, tingling, N, V, vision or hearing changes, bowel or bladder symptoms. Past Medical/Surgical History Medical Problems: (1) Anxiety Status: Chronic (2) Syncope Status: Acute (3) Transient ischemic attack (TIA) Status: Acute Social History Smoking Status: Never smoker Smokeless Tobacco Use: No Alcohol Use: socially Drug Use: none Marital Status: Housing Status: lives with family Occupation Status: retired Allergies Coded Allergies: No Known Allergies (Verified , 08/16/04) Current Inpatient Medications Current Inpatient Medications Medications (Trade) Dose Ordered Sig/Tanya Route Start Time Stop Time Status Last Admin Dose Admin Heparin Sodium (Porcine) 5000 unit 5,000 unit Q8 SQ 06/11/16 22:00 07/11/16 21:59 06/12/16 06:06 5,000 UNIT Sodium Chloride (Nss 1000ml) 1,000 ml @ 100 mls/hr Q10H IV 06/11/16 18:29 07/11/16 18:28 06/12/16 04:30 100 MLS/HR Acetaminophen (Tylenol Tab) 650 mg Q4H PRN PO 06/11/16 18:30 07/11/16 18:29 Ondansetron HCl (Zofran Inj) 4 mg Q6H PRN IV 06/11/16 18:30 07/11/16 18:29 Atorvastatin Calcium (Lipitor Tab) 40 mg QAM PO 06/12/16 09:00 07/12/16 08:59 06/12/16 08:00 40 MG Aspirin (Ecotrin Tab) 81 mg QAM PO 06/12/16 09:00 07/12/16 08:59 06/12/16 08:00 81 MG Miscellaneous Information (Pharmacist Discharge Med Rec Consult) 1 ea UD PRN N/A 06/11/16 18:45 07/11/16 18:44 Fluticasone Propionate (Flonase Nasal [place]) 2 sprays BID EMERY 06/11/16 21:00 07/11/16 20:59 Lorazepam (Ativan Tab) 0.5 mg BID PRN PO 06/11/16 19:00 07/11/16 18:59 Venlafaxine HCl (effeXOR EXTENDED REL CAP) 75 mg DAILY PO 06/12/16 09:00 07/12/16 08:59 06/12/16 08:00 75 MG Miscellaneous (Iv Fluids Completed) 1 ea PRN PRN N/A 06/11/16 21:30 06/11/17 21:29 Physical Exam Vital Signs (Past 24 Hrs): Date Time Temp Pulse Resp B/P Pulse Ox O2 Delivery O2 Flow Rate FiO2 06/12/16 12:27 Room Air 06/12/16 11:35 68 20 130/76 95 Room Air 06/12/16 08:00 Room Air 06/12/16 07:42 36.6 63 16 117/72 96 Room Air 06/12/16 04:29 36.8 72 20 125/75 96 Room Air 06/12/16 04:10 Room Air 06/12/16 00:10 Room Air 06/11/16 22:57 36.9 77 18 148/83 95 Room Air 06/11/16 21:02 36.7 72 16 149/93 Room Air 06/11/16 20:20 81 20 145/90 96 06/11/16 19:45 81 20 96 06/11/16 19:40 85 20 96 06/11/16 19:35 87 23 96 06/11/16 19:30 80 18 96 06/11/16 19:25 81 19 96 06/11/16 19:20 80 20 94 06/11/16 19:15 86 19 96 06/11/16 19:10 13 06/11/16 19:05 17 06/11/16 19:00 17 06/11/16 18:58 145/90 06/11/16 18:55 20 06/11/16 18:50 32 06/11/16 18:45 12 06/11/16 18:40 16 06/11/16 18:35 15 06/11/16 18:30 19 06/11/16 18:25 16 06/11/16 18:20 21 06/11/16 18:15 18 06/11/16 18:10 25 06/11/16 18:05 25 06/11/16 18:00 32 06/11/16 17:59 148/91 06/11/16 17:55 90 17 06/11/16 17:50 84 14 06/11/16 17:45 78 16 06/11/16 17:40 78 22 06/11/16 17:35 23 06/11/16 17:30 83 26 06/11/16 17:25 78 17 06/11/16 17:20 73 17 06/11/16 17:15 71 17 06/11/16 17:10 72 17 06/11/16 17:05 71 19 06/11/16 17:00 70 24 06/11/16 16:58 123/76 06/11/16 16:55 70 22 06/11/16 16:50 66 14 06/11/16 16:45 68 25 06/11/16 16:41 36.6 69 16 130/80 100 Room Air 06/11/16 16:40 67 19 130/80 100 06/11/16 16:20 72 15 06/11/16 16:15 69 23 06/11/16 16:10 71 13 06/11/16 16:05 67 4 06/11/16 16:00 67 22 06/11/16 15:55 69 19 06/11/16 15:50 74 13 100 06/11/16 15:46 100 Room Air 06/11/16 15:45 66 22 100 06/11/16 15:40 76 21 06/11/16 15:35 64 13 06/11/16 15:30 63 15 06/11/16 15:25 73 22 1/23/17 15:20 69 24 06/11/16 15:15 76 31 06/11/16 15:10 69 30 06/11/16 15:05 68 19 06/11/16 15:00 70 33 06/11/16 14:55 71 25 06/11/16 14:50 72 33 06/11/16 14:45 72 24 06/11/16 14:42 66 18 117/72 100 Room Air 06/11/16 14:40 71 21 100 06/11/16 14:35 66 28 100 06/11/16 14:35 69 Physical Exam: Constitutional: appearance nourished, healthy and normal Ears, Nose, Mouth and Throat: mucous membranes moist, no injection and skin normal, eyes normal Cardiovascular: normal S-1 and S-2 and regular rate and rhythm Respiratory: clear to auscultation (CTA) and no rales, rhonchi or wheeze Musculoskeletal: no peripheral edema and good distal pulses Skin: no stigmata of neurocutaneous disease noted and normal and intact Eyes: extraocular muscles intact (EOMI) and pupils equal, round and reactive to light (PERRL) NEUROLOGIC EXAMINATION: Mental status: Alert and interactive Oriented to full date and location Oriented to person Speech fluent with no evidence of aphasia Cranial Nerves smile, eye brow raise symmetric, tongue midline Reflexes: Deep tendon reflexes were symmetrical and graded 2/5. Plantar responses were flexor. Sensory: cool sensory loss on left lateral kerns, otherwise in take to cool and vibration Coordination: Romberg absent, finger to nose with no bi pass or tremor Gait/Stance: Posture normal. Gait normal: with steady with steps, base, turning, walking and tandem gait. Motor: Negative for pronator drift of out stretched arms with eyes closed. Strength: biceps triceps hand event planner bilaterally 5/5, hip flex plantar flex ext bilaterally 5/5 Laboratory Results Past 24 Hours: 06/12/16 06:28 Red Blood Count 4.57, Mean Corpuscular Volume 86.2, Mean Corpuscular Hemoglobin 29.1, Mean Corpuscular Hemoglobin Concent 33.8, Mean Platelet Volume 8.9, Neutrophils (%) (Auto) 62.0, Lymphocytes (%) (Auto) 27.3, Monocytes (%) (Auto) 7.9, Eosinophils (%) (Auto) 2.3, Basophils (%) (Auto) 0.4, Neutrophils # (Auto) 4.68, Lymphocytes # (Auto) 2.06, Monocytes # (Auto) 0.60, Eosinophils # (Auto) 0.17, Basophils # (Auto) 0.03 06/12/16 06:28 Test 06/11/16 15:43 06/11/16 15:45 06/11/16 15:46 06/12/16 06:28 Bedside Glucose 109 mg/dl (70-99) Ammonia 20.0 umol/L (11-32) Ethyl Alcohol mg/dL < 3.0 mg/dl (0-3) White Blood Count 7.55 K/uL (4.8-10.8) Red Blood Count 4.57 M/uL (4.7-6.1) Hemoglobin 13.3 g/dL (14.0-18.0) Hematocrit 39.4 % (42-52) Mean Corpuscular Volume 86.2 fL (80-100) Mean Corpuscular Hemoglobin 29.1 pg (25-34) Mean Corpuscular Hemoglobin Concent 33.8 g/dl (32-36) Platelet Count 166 K/uL (130-400) Mean Platelet Volume 8.9 fL (7.4-10.4) Neutrophils (%) (Auto) 62.0 % Lymphocytes (%) (Auto) 27.3 % Monocytes (%) (Auto) 7.9 % Eosinophils (%) (Auto) 2.3 % Basophils (%) (Auto) 0.4 % Neutrophils # (Auto) 4.68 K/uL (1.4-6.5) Lymphocytes # (Auto) 2.06 K/uL (1.2-3.4) Monocytes # (Auto) 0.60 K/uL (0.11-0.59) Eosinophils # (Auto) 0.17 K/uL (0-0.5) Basophils # (Auto) 0.03 K/uL (0-0.2) RDW Standard Deviation 42.4 fL (36.4-46.3) RDW Coefficient of Variation 13.4 % (11.5-14.5) Immature Granulocyte % (Auto) 0.1 % Immature Granulocyte # (Auto) 0.01 K/uL (0.00-0.02) Anion Gap 10.0 mmol/L (3-11) Est Creatinine Clear Calc Drug Dose 73.0 ml/min Estimated GFR () 82.4 Estimated GFR (Non- 71.1 BUN/Creatinine Ratio 12.5 (10-20) Calcium Level 8.5 mg/dl (8.5-10.1) Triglycerides Level 191 mg/dl (0-150) Cholesterol Level 189 mg/dl (0-200) HDL Cholesterol 47 mg/dl LDL Cholesterol, Calculated 104 mg/dl VLDL Cholesterol, Calculated 38 mg/dl Cholesterol/HDL Ratio 4.0 Test 06/12/16 09:15 Urine Color YELLOW Urine Appearance CLEAR (CLEAR) Urine pH 6.5 (4.5-7.5) Urine Specific [place] 1.011 (1.000-1.030) Urine Protein NEG (NEG) Urine Glucose (UA) NEG (NEG) Urine Ketones NEG (NEG) Urine Occult Blood NEG (NEG) Urine Nitrite NEG (NEG) Urine Bilirubin NEG (NEG) Urine Urobilinogen NEG (NEG) Urine Leukocyte Esterase NEG (NEG) Urine WBC (Auto) 1-5 /hpf (0-5) Urine RBC (Auto) 0-4 /hpf (0-4) Urine Hyaline Casts (Auto) 0 /lpf (0-5) Urine Epithelial Cells (Auto) 0-5 /lpf (0-5) Urine Bacteria (Auto) NEG (NEG) Urine Opiates Screen NEG (NEG) Urine Methadone, Qualitative NEG (NEG) Urine Barbiturates NEG (NEG) Urine Phencyclidine (PCP) Level NEG (NEG) Ur Amphetamine/Methamphetamine NEG (NEG) MDMA (Ecstasy) Screen NEG (NEG) Urine Benzodiazepines Screen NEG (NEG) Urine Cocaine Metabolite NEG (NEG) Urine Marijuana (THC) NEG (NEG) Imaging MRI with and without contrast-. A small chronic lacunar infarct is identified in the left cerebellar hemisphere. no acute findings CT head- no hemorrhage or acute findings Carotid doppler- no significant stenosis Impression 61 year old male with unknown past history of lacunar stroke, and current TIA Plan 1. add aspirin 81 mg and plavix 75 mg x 3 months and then continue aspirin for a lifetime 2. permissive hypertension 3. EEG -no seizure focus 4. TTE -pending 5. LDL < 70 statin needed 6. will need cardio net as out patient for further evaluation of irregular rate 7. further recommendations to follow after TTE resulted I have seen and discussed above patient with Dr Sourav De La Rosa, neurology I have seen this man and reviewed th history and above findings with Meghana Dasilva the event on the surface sounds like a hypotension induced syncopal syndrome with associated head trauma and post trauma speech and language dysfunction that has cleared and left no clinical findings or imaging abnormalties and is assocated with no eeg abnormalities. Some cardiac irregularities have been reported however and agree with the cardionet recommendations and for the short run a combination of aspirinn and plavix to cove the possibility of a tia rather than a post closed head injury issue being responsible for the transient neurological issues. He needs to have orthostatic bp checks and review of the tte befor discharging but for now neuro does not fee this was a seizure and I have my doubts about a true tia but will err on the side of caution Sourav De La Rosa MD
[2016-06-12 15:15] VITALS: BP 128/76; PULSE 65; TEMP 36.5; O2SAT 94
[2016-06-12] MEDS ORDERED: CLOPIDOGREL BISULFATE 75 MG TAB PO ONE (15:30)
--- NOTE | 2016-06-12 17:06 | ECHOCARDIOGRAM REPORT ---
*NOTICE TO RECEIVING DEMOCRAT AGENCY This information is strictly Confidential and protected under [place] law. [place] law prohibits you from making any further disclosure of this information unless further disclosure is expressly permitted by the written consent of the person to whom it pertains or is authorized by law. A general authorization for the release of medical or other information is not sufficient for this purpose. Hospital accepts no responsibility if the information is made available to any other person, INCLUDING THE PATIENT. Interpretation Summary * Name: LYNN SAWYER Study Date: 06/12/2016 08:02 AM BP: 125/75 mmHg * Patient Location: [facility] HR: 72 * : 1955 (M/d/yyyy) Gender: Male Height: 67 in * Age: 61 yrs Ethnicity: [place] Weight: 187 lb * Ordering Physician: Virja Ocampo * Referring Physician: Self, Referred * Performed By: Carlotta Vargas RDCS * * Reason For Study: Syncope * BSA: 2.0 m2 * Normal biventricular systolic function. * Mild concentric left ventricular hypertrophy. * Trace tricuspid and pulmonic regurgitation. * Mild mitral regurgitation. * Normal chamber dimensions. Procedure Details * A complete two-dimensional transthoracic echocardiogram was performed (2D, M-mode, Doppler and color flow Doppler). Left Ventricle * The left ventricle is normal in size. * There is mild concentric left ventricular hypertrophy. * Ejection Fraction = 65-70%. * Left ventricular systolic function is normal. * The left ventricular wall motion is normal. Right Ventricle * The right ventricle is normal in size and function. Atria * The left atrial size is normal. * Right atrial size is normal. * No ASD detected; PFO is not assessed. Mitral Valve * There is mild mitral annular calcification. * There is no mitral valve stenosis. * There is mild mitral regurgitation. Tricuspid Valve * The tricuspid valve is not well visualized, but is grossly normal. * There is no tricuspid stenosis. * There is trace tricuspid regurgitation. * Right ventricular systolic pressure is normal. Aortic Valve * The aortic valve is trileaflet. * The aortic valve opens well. * Aortic stenosis is absent. * No aortic regurgitation is present. Pulmonic Valve * The pulmonic valve is not well visualized. * Trace pulmonic valvular regurgitation. Great Vessels * The aortic root is normal size. Pericardium/Pleural * There is no pericardial effusion. Great Vessels * Normal inferior vena cava diameter and respiratory variation suggests normal central venous pressure. MMode 2D Measurements and Calculations IVSd 1.4 cm IVSs 1.6 cm LVIDd 4.2 cm LVIDs 2.9 cm LVPWd 1.4 cm LVPWs 1.5 cm IVS/LVPW 10 FS 31.4 % EDV(Teich) 77.1 ml ESV(Teich) 31.1 ml EF(Teich) 59.6 % EDV(cubed) 72.3 ml ESV(cubed) 23.4 ml EF(cubed) 67.7 % % IVS thick 12.8 % % LVPW thick 6.8 % LV mass(C)d 230.9 grams LV mass(C)dI 117.5 grams/m\S\2 LV mass(C)s 162.3 grams LV mass(C)sI 82.6 grams/m\S\2 SV(Teich) 45.9 ml SI(Teich) 23.4 ml/m\S\2 SV(cubed) 48.9 ml SI(cubed) 24.9 ml/m\S\2 Ao root diam 3.0 cm Ao root area 6.9 cm\S\2 ACS 1.6 cm LA dimension 3.1 cm LA/Ao 1.1 LVAd ap4 31.9 cm\S\2 LVLd ap4 8.3 cm EDV(MOD-sp4) 100.1 ml EDV(sp4-el) 104.3 ml LVAs ap4 16.1 cm\S\2 LVLs ap4 6.1 cm ESV(MOD-sp4) 35.9 ml ESV(sp4-el) 36.1 ml EF(MOD-sp4) 64.1 % EF(sp4-el) 65.4 % LVAd ap2 28.2 cm\S\2 LVLd ap2 8.3 cm EDV(MOD-sp2) 85.3 ml EDV(sp2-el) 80.8 ml LVAs ap2 13.6 cm\S\2 LVLs ap2 6.6 cm ESV(MOD-sp2) 25.5 ml ESV(sp2-el) 23.7 ml EF(MOD-sp2) 70.1 % EF(sp2-el) 70.7 % LVLd %diff 0.46 % EDV(MOD-bp) 90.5 ml LVLs %diff 8.2 % ESV(MOD-bp) 30.6 ml EF(MOD-bp) 66.2 % SV(MOD-sp4) 64.2 ml SI(MOD-sp4) 32.7 ml/m\S\2 SV(MOD-sp2) 59.8 ml SI(MOD-sp2) 30.4 ml/m\S\2 SV(MOD-bp) 59.9 ml SI(MOD-bp) 30.5 ml/m\S\2 SV(sp4-el) 68.3 ml SI(sp4-el) 34.7 ml/m\S\2 SV(sp2-el) 57.1 ml SI(sp2-el) 29.0 ml/m\S\2 Doppler Measurements and Calculations MV E max mike 85.4 cm/sec MV A max mike 77.0 cm/sec MV E/A 1.1 MV dec time 0.19 sec Ao V2 max 130.9 cm/sec Ao max PG 6.9 mmHg Ao max PG (full) 1.1 mmHg LV V1 max PG 5.8 mmHg LV V1 max 119.9 cm/sec MR max mike 503.9 cm/sec MR max PG 101.7 mmHg MR mean mike 328.8 cm/sec MR mean PG 52.3 mmHg MR VTI 154.0 cm PA V2 max 135.7 cm/sec PA max PG 7.4 mmHg PI max mike 207.7 cm/sec PI max PG 17.3 mmHg PI dec slope 269.5 cm/sec\S\2 PI P1/2t 225.7 msec TR max mike 202.2 cm/sec
--- NOTE | 2016-06-12 18:07 | Progress Note ---
Internal Med Progress Note Date of Service: Jun 12, 2016. Provider Documentation: SUBJECTIVE: Patient is awake/alert and sitting in his bed in no apparent distress. Denies any headache cale has some soreness on back of head. Denies any nausea/vomiting. No visual blurriness. OBJECTIVE: Vital Signs-as noted below Examination: General Appearance: Alert/Awake, Well developed/well nourished, no apparent distress Head: normocephalic, atraumatic, Mild soreness of back of head on palpation Eyes: normal inspection, PERRL, EOMI, sclerae normal ENT: normal ENT inspection, hearing grossly normal Neck: supple, no adenopathy, no JVD, no carotid bruits, trachea midline Respiratory/Chest: chest non-tender, lungs clear, normal breath sounds, no respiratory distress, no accessory muscle use Cardiovascular: regular rate, rhythm, no edema, no JVD, no murmur Abdomen/GI: normal bowel sounds, non tender, soft Back: normal inspection Extremities/Musculoskeletal: normal inspection, no calf tenderness, no pedal edema Neurologic/Psych: tobacco dipper II-XII nml as tested, no motor/sensory deficits, alert, normal mood/affect, oriented x 3, Fluent speech. Skin: normal color, warm/dry Lab data as noted below. ASSESSMENT & PLAN: Likely Syncope S/P Fall: Clinically & hemodynamically stable. 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 -Reviewed Echocardiogram and no clinically significant abnormality -HbAic is 5.7 -Continue Aspirin, Lipitor -Neurology consult Reviewed. Thanks for input. Acute Kidney Injury: Likely due to volume depletion and pre-renal in etiology.Resolved now. -Holding ACEI, ARBs -Encouraged to drink more fluids. Hypertension: BP has been Stable Hypokalemia:Resolved. Hyperlipidemia:Lipid profile shows HDL 47 and LDL 104. Anxiety Disorder: Stable -Continue home meds DVT Prophylaxis:Heparin SQ Code Status: Full code Disposition: Discharge home later today. Follow up with PCP on 06/18/2016 @ 10.50 AM. Vital Signs: Date Time Temp Pulse Resp B/P Pulse Ox O2 Delivery O2 Flow Rate FiO2 06/12/16 15:15 36.5 65 18 128/76 94 Room Air 06/12/16 12:27 Room Air 06/12/16 11:35 68 20 130/76 95 Room Air 06/12/16 08:00 Room Air 06/12/16 07:42 36.6 63 16 117/72 96 Room Air 06/12/16 04:29 36.8 72 20 125/75 96 Room Air 06/12/16 04:10 Room Air 06/12/16 00:10 Room Air 06/11/16 22:57 36.9 77 18 148/83 95 Room Air 06/11/16 21:02 36.7 72 16 149/93 Room Air 06/11/16 20:20 81 20 145/90 96 06/11/16 19:45 81 20 96 06/11/16 19:40 85 20 96 06/11/16 19:35 87 23 96 06/11/16 19:30 80 18 96 06/11/16 19:25 81 19 96 06/11/16 19:20 80 20 94 06/11/16 19:15 86 19 96 06/11/16 19:10 13 06/11/16 19:05 17 06/11/16 19:00 17 06/11/16 18:58 145/90 06/11/16 18:55 20 06/11/16 18:50 32 06/11/16 18:45 12 06/11/16 18:40 16 06/11/16 18:35 15 06/11/16 18:30 19 06/11/16 18:25 16 06/11/16 18:20 21 06/11/16 18:15 18 06/11/16 18:10 25 Lab Results: Results Past 24 Hours Test 06/12/16 06:28 06/12/16 09:15 Range/Units White Blood Count 7.55 4.8-10.8 K/uL Red Blood Count 4.57 4.7-6.1 M/uL Hemoglobin 13.3 14.0-18.0 g/dL Hematocrit 39.4 42-52 % Mean Corpuscular Volume 86.2 80-100 fL Mean Corpuscular Hemoglobin 29.1 25-34 pg Mean Corpuscular Hemoglobin Concent 33.8 32-36 g/dl Platelet Count 166 130-400 K/uL Mean Platelet Volume 8.9 7.4-10.4 fL Neutrophils (%) (Auto) 62.0 % Lymphocytes (%) (Auto) 27.3 % Monocytes (%) (Auto) 7.9 % Eosinophils (%) (Auto) 2.3 % Basophils (%) (Auto) 0.4 % Neutrophils # (Auto) 4.68 1.4-6.5 K/uL Lymphocytes # (Auto) 2.06 1.2-3.4 K/uL Monocytes # (Auto) 0.60 0.11-0.59 K/uL Eosinophils # (Auto) 0.17 0-0.5 K/uL Basophils # (Auto) 0.03 0-0.2 K/uL RDW Standard Deviation 42.4 36.4-46.3 fL RDW Coefficient of Variation 13.4 11.5-14.5 % Immature Granulocyte % (Auto) 0.1 % Immature Granulocyte # (Auto) 0.01 0.00-0.02 K/uL Sodium Level 144 136-145 mmol/L Potassium Level 4.1 3.5-5.1 mmol/L Chloride Level 109 98-107 mmol/L Carbon Dioxide Level 25 21-32 mmol/L Anion Gap 10.0 3-11 mmol/L Blood Urea Nitrogen 14 7-18 mg/dl Creatinine 1.10 0.60-1.40 mg/dl Est Creatinine Clear Calc Drug Dose 73.0 ml/min Estimated GFR () 82.4 Estimated GFR (Non- 71.1 BUN/Creatinine Ratio 12.5 10-20 Random Glucose 92 70-99 mg/dl Calcium Level 8.5 8.5-10.1 mg/dl Triglycerides Level 191 0-150 mg/dl Cholesterol Level 189 0-200 mg/dl HDL Cholesterol 47 mg/dl LDL Cholesterol, Calculated 104 mg/dl VLDL Cholesterol, Calculated 38 mg/dl Cholesterol/HDL Ratio 4.0 Urine Color YELLOW Urine Appearance CLEAR CLEAR Urine pH 6.5 4.5-7.5 Urine Specific Alpha 1.011 1.000-1.030 Urine Protein NEG NEG Urine Glucose (UA) NEG NEG Urine Ketones NEG NEG Urine Occult Blood NEG NEG Urine Nitrite NEG NEG Urine Bilirubin NEG NEG Urine Urobilinogen NEG NEG Urine Leukocyte Esterase NEG NEG Urine WBC (Auto) 1-5 0-5 /hpf Urine RBC (Auto) 0-4 0-4 /hpf Urine Hyaline Casts (Auto) 0 0-5 /lpf Urine Epithelial Cells (Auto) 0-5 0-5 /lpf Urine Bacteria (Auto) NEG NEG Urine Opiates Screen NEG NEG Urine Methadone, Qualitative NEG NEG Urine Barbiturates NEG NEG Urine Phencyclidine (PCP) Level NEG NEG Ur Amphetamine/Methamphetamine NEG NEG MDMA (Ecstasy) Screen NEG NEG Urine Benzodiazepines Screen NEG NEG Urine Cocaine Metabolite NEG NEG Urine Marijuana (THC) NEG NEG
--- NOTE | 2016-06-12 18:19 | Discharge Instructions ---
Discharge Instructions Admission Reason for Admission: Syncope Discharge Discharge Diagnosis / Problem: Acute Kidney I jury Discharge Goals Goal(s): Decrease discomfort, Improve function, Increase independence, Improve disease control, Learn about illness, Diagnostic testing Activity Recommendations Activity Limitations: resume your previous activity (Gradually) Lifting Limitations: none Exercise/Sports Limitations: as tolerated May Resume Sexual Activity: when tolerated Shower/Bathe: no limitations Driving or Machine Use: resume 1 day after discharge . Instructions / Follow-Up Instructions / Follow-Up Follow up with PCP on 06/18/2016 @ 10.50 AM. Current Hospital Diet Patient's current hospital diet: AHA Diet (Heart Healthy) Discharge Diet Recommended Diet: AHA Diet (Heart Healthy) Fluid Restriction: None (Drink as much fluids as you can tolerate.) Procedures Procedures Performed: CT Head MRI Brain Echocardiogram Pending Studies Studies pending at discharge: no Laboratory Results Hemoglobin A1c Test 06/11/16 14:05 Range/Units Estimated Average Glucose 117 mg/dl Hemoglobin A1c 5.7 H 4.5-5.6 % Lipid Panel Test 06/12/16 06:28 Range/Units Triglycerides Level 191 H 0-150 mg/dl Cholesterol Level 189 0-200 mg/dl HDL Cholesterol 47 mg/dl Cholesterol/HDL Ratio 4.0 LDL Cholesterol, Calculated 104 mg/dl Medical Emergencies . Who to Call and When: Medical Emergencies: If at any time you feel your situation is an emergency, please call 911 immediately. . Non-Emergent Contact Non-Emergency issues call your: Primary Care Provider . . "Provider Documentation" section prepared by Remi Pettit. VTE Core Measure Inpt VTE Proph given/why not?: Unfractionated heparin SQ
[2016-06-12] MEDS ORDERED: ASPEC81 PO (18:20)
--- NOTE | 2016-06-12 18:25 | Discharge Summary ---
Discharge Summary Admission Date: Jun 11, 2016 at 18:36 Discharge Date: Jun 12, 2016 Discharge Disposition: Home Principal Diagnosis: S/P Fall Syncope Acute Kidney Injury Hypokalemia (Resolved) Secondary Diagnoses/Problems: Hypertension Hyperlipidemia Anxiety Disorder Procedures: CT SCAN OF THE BRAIN WITHOUT IV CONTRAST IMPRESSION: No acute intracranial abnormality. CHEST ONE VIEW PORTABLE IMPRESSION: Mild interstitial thickening, finding of uncertain chronicity. No evidence of lobar consolidation BILATERAL CAROTID DOPPLER STUDY IMPRESSION: No hemodynamically significant stenosis seen within the carotid arteries. MRI OF THE BRAIN WITHOUT IV CONTRAST IMPRESSION: 1. No acute intracranial abnormality. 2. There is a 1.3 cm ovoid lesion in the tongue. This was also seen in 2009 and is of indeterminant but doubtful significance. Echocardiogram Normal biventricular systolic function. Mild concentric left ventricular hypertrophy. Trace tricuspid and pulmonic regurgitation. Mild mitral regurgitation. Normal chamber dimensions. EEG INTERPRETATION: This EEG is essentially normal during wakefulness without evidence for a focal or generalized encephalopathy and without evidence for potential epileptogenic activity. Vaccinations: NONE Consultations: Neurology Pending Studies/Follow-Up: None Medication Reconciliation New Medications: Aspirin (Aspirin EC Low Dose) 81 Mg Ectab 81 MG PO QAM, #100 Continued Medications: Amlodipine (Norvasc) 5 Mg Tab 5 MG PO HS, TAB Fluticasone Propionate (Nasal) (Flonase Allergy Relief) 50 Mcg/Act Spr 2 SPRAYS EMERY BID Lorazepam (Ativan) 0.5 Mg Tab 0.5 MG PO BID PRN for Anxiety, TAB Simvastatin (Zocor) 20 Mg Tab 20 MG PO QPM, TAB Venlafaxine Hcl (Effexor Extended Rel) 75 Mg Capcr 75 MG PO DAILY, CAP Admission Information HPI (per Admitting provider): Patient is a 61 yr old male with PMH of HTN, HLP, anxiety disorder presents for evaluation of a syncopal episode. Patient is known to be exercising at [employer] today and had suddenly felt light headed and lost LOC for unknown duration. Patient had hit his head as a result of his fall and currently has mild soreness. Associated symptoms include Slurred speech, nausea, vomiting, SOB during the episode which currently resolved. Patient reports slurred speech lasted for about 2 hours which currently resolved. Denies any history of headache, vertigo, blurry vision, chest pain, bowel/bladder incontinence. 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 He denies any weakness, numbness, tingling but reports mild soreness of left elbow which is bruised from fall. Also denies any fever, chills, abd pain, change in bowel/ bladder habits. Physical Exam (per Admitting): General Appearance: WD/WN, no apparent distress Head: normocephalic, atraumatic, + pertinent finding (Mild soreness of back of head) Eyes: normal inspection, PERRL, EOMI, sclerae normal ENT: normal ENT inspection, hearing grossly normal Neck: supple, no adenopathy, no JVD, no carotid bruits, trachea midline Respiratory/Chest: chest non-tender, lungs clear, normal breath sounds, no respiratory distress, no accessory muscle use Cardiovascular: regular rate, rhythm, no edema, no JVD, no murmur Abdomen/GI: normal bowel sounds, non tender, soft Back: normal inspection Extremities/Musculoskelatal: normal inspection, no calf tenderness, no pedal edema Neurologic/Psych: 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 No arrhythmias so far. 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 -Reviewed Echocardiogram and no clinically significant abnormality -HbAic is 5.7 -Continue Aspirin, Lipitor -Neurology consult Reviewed. Thanks for input. Acute Kidney Injury: Likely due to volume depletion and pre-renal in etiology.Resolved now. -Encouraged to drink more fluids. Hypertension: BP has been Stable Hypokalemia:Resolved. Hyperlipidemia:Lipid profile shows HDL 47 and LDL 104. Anxiety Disorder: Stable -Continue home meds DVT Prophylaxis:Heparin SQ Code Status: Full code Disposition: Discharge home later today. Follow up with PCP on 06/18/2016 @ 10.50 AM. May need to see a Head Cook in case such symptoms recur. Total time spent on discharge = 40 minutes. This includes examination of the patient, discharge planning, medication reconciliation, and communication with other providers. Discharge Instructions Discharge Goals Goal(s): Decrease discomfort, Improve function, Increase independence, Improve disease control, Learn about illness, Diagnostic testing Activity Recommendations Activity Limitations: resume your previous activity (Gradually) Lifting Limitations: none Exercise/Sports Limitations: as tolerated May Resume Sexual Activity: when tolerated Shower/Bathe: no limitations Driving or Machine Use: resume 1 day after discharge . Instructions / Follow-Up Instructions / Follow-Up Follow up with PCP on 06/18/2016 @ 10.50 AM. Current Hospital Diet Patient's current hospital diet: AHA Diet (Heart Healthy) Additional Copies To Mihir Bardales M.D.
[2016-06-12 20:14] VITALS: BP 131/75; PULSE 82; TEMP 36.8; O2SAT 94
[2016-06-13] MEDS ORDERED: CLOPIDOGREL BISULFATE 75 MG TAB PO SCH (09:00)
--- NOTE | 2016-06-21 11:47 | EDITING REQUIRED CODING QUERY ---
TIA CLARIFICATION TIA was documented at the beginning of the stay but not mentioned towards the end. Please clarify if this was ruled out or still present during this admission: ( ) TIA WAS PRESENT DURING THIS ADMISSION ( ) TIA WAS RULED OUT DURING THIS ADMISSION ( ) SYNCOPE WAS PRESENT DURING THIS ADMISSION ( ) SYNCOPE WAS RULED OUT DURING THIS ADMISSION ( X ) OTHER, PLEASE CLARIFY: There is no Black & White way to Rule out Syncope. There is likelihood of Vasovagal episode here but can not prove it as I am not the admitting physician. I have tried my best to conclude it in discharge summary but do not have any other explanation. thanks Thank you for your assistance, Vivian Webster - Assistant Boiler Operator
== END 2016-06-12 19:51 | disposition home or self-care (01) ==
LOC: ENRESERVTM → ENRESERVDT → EDBD 14:25 → C.EDB 14:25 → C.MED 18:36
PROVIDERS: ADMIT Internal Medicine; ATTEND Emergency Medicine
DX: R55 Syncope and collapse (principal); W19.XXXA Unspecified fall, initial encounter; N17.9 Acute kidney failure, unspecified; E87.6 Hypokalemia; I10 Essential (primary) hypertension; E78.5 Hyperlipidemia, unspecified

== ENCOUNTER 2017-02-24 13:18 | Emergency (ER) | payer OTHER ==
[~2017-02-24] VITALS: Ht 172.7 cm; Wt 79.4 kg
[~2017-02-24 13:18] MED LIST changes: +AMLO-110 PO; -ASPCH81; +ASPEC81 PO; -EFF50 PO; +EFFSR75 PO; +FLUT0.15 NAE; +LORA-741 PO; -MULT-506 PO; +SIMV20TA2 PO; -SIMV40TA2 PO
[2017-02-24 13:27] VITALS: TEMP 36.4; Ht 172.7 cm; Wt 79.4 kg
[2017-02-24] MEDS ORDERED: ASPI81TA28 PO (14:59)
[2017-02-24 15:05] LABS: BLOOD UREA NITROGEN 14 mg/dl (7-18); BUN/CREATININE RATIO 12.7 (10-20); CALCIUM 9.6 mg/dl (8.5-10.1); CARBON DIOXIDE 27 mmol/L (21-32); CHLORIDE 107 mmol/L (98-107); GLUCOSE 121 mg/dl (70-99); HEMATOCRIT 45.6 % (42-52); MEAN CELL VOLUME 85.4 fL (80-100); PLATELET COUNT 194 K/uL (130-400); POTASSIUM 3.8 mmol/L (3.5-5.1); RED BLOOD COUNT 5.34 M/uL (4.7-6.1); SODIUM 142 mmol/L (136-145); WHITE BLOOD COUNT 8.67 K/uL (4.8-10.8)
--- NOTE | 2017-02-24 15:50 | EMERGENCY ROOM VISIT NOTE ---
History Report prepared by Tara: Doris Baxter Under the Supervision of: Dr. Russell Khan M.D. First contact with patient: 14:17 Chief Complaint: DIZZY Stated Complaint: FAINTED History of Present Illness The patient is a 61 year old male who presents to the Emergency Room with complaints of an episode of syncope that occurred earlier today. Patient was experiencing some coughing prior to his episode. Patient states that he felt fine until he was on his way to the bathroom when he started to feel dizzy, lightheaded, and nauseated. He denies feeling like the room was spinning. He sat down because he felt like he was going to pass out and that is when he passed out. His found him a couple minutes later. His reports that when she found him, he was staring at the ceiling but not responding when his name was being called. She denies witnessing any seizure-like activity. The patient notes that his fingers were feeling tingly when he regained consciousness. The patient notes that he still feels weak but otherwise feels fine. He was not incontinent of urine or stool during the episode. The patient reports that he took Viagra the night before and had trouble sleeping through the night. He also notes that he missed a dose of his blood pressure medications the night before the episode. The patient denies any chest pain, shortness of breath, abdominal pain, and any focal weakness. He also denies experiencing any pain that may have resulted due to the episode. The patient has no history of seizures. The patient has a history of passing out and notes that today's episode was similar to his previous episodes. He takes a daily baby aspirin. 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 Pt denies seizure-like activity and focal weakness , Review of Systems All systems have been listed, reviewed, and are negative other than those previously mentioned. Please see Additional Medical History Sheet. Past Medical & Surgical Medical Problems: (1) Anxiety (2) Depression (3) Syncopal episodes Family History No pertinent family history Social History Smoking Status: Never Smoker Alcohol Use: none Drug Use: none Marital Status: Housing Status: lives with family Occupation Status: retired Current/Historical Medications Scheduled Amlodipine (Norvasc), 5 MG PO HS Aspirin (Aspirin Ec), 81 MG PO DAILY Fluticasone Propionate (Nasal) (Flonase Allergy Relief), 2 SPRAYS EMERY BID Simvastatin (Zocor), 20 MG PO QPM Venlafaxine Hcl (Effexor Extended Rel), 75 MG PO DAILY Scheduled PRN Lorazepam (Ativan), 0.5 MG PO BID PRN for Anxiety Allergies Coded Allergies: No Known Allergies (Verified , 02/24/17) Physical Exam Vital Signs Date Time Temp Pulse Resp B/P (MAP) Pulse Ox O2 Delivery O2 Flow Rate FiO2 02/24/17 17:17 67 18 111/77 97 02/24/17 16:26 64 18 130/72 98 Room Air 02/24/17 14:50 63 20 122/71 97 Room Air 02/24/17 14:50 63 20 122/71 97 Room Air 64 126/79 77 139/77 02/24/17 13:27 36.4 71 18 133/88 99 Room Air Physical Exam GENERAL: Patient awake, alert, oriented x 3. Patient follows commands. Patient does not appear toxic. Patient is adequately hydrated and well- nourished. SKIN: No erythema, pallor, cyanosis or rash HEENT: Normal head, pupils equal, reactive to light and accommodation. Ears normal. Oral cavity and posterior pharynx appear normal. Neck: Without adenopathy, no neck vein distention. LUNGS: Clear to auscultation. No wheezes, no rales, no rhonchi. HEART: No murmurs. No gallops. No rubs ABDOMEN: No masses, no rebound, no hepatomegaly or splenomegaly. EXTREMITIES: No signs of trauma. No pedal or pretibial edema. No calf or thigh tenderness. NEUROLOGIC: Cranial nerves II-XII within normal limits. No gross motor sensory function deficits. Medical Decision & Procedures Laboratory Results 02/24/17 14:40 02/24/17 14:40 Test 02/24/17 14:40 Red Blood Count 5.34 M/uL (4.7-6.1) Mean Corpuscular Volume 85.4 fL (80-100) Mean Corpuscular Hemoglobin 29.0 pg (25-34) Mean Corpuscular Hemoglobin Concent 34.0 g/dl (32-36) RDW Standard Deviation 41.2 fL (36.4-46.3) RDW Coefficient of Variation 13.2 % (11.5-14.5) Mean Platelet Volume 9.0 fL (7.4-10.4) Anion Gap 8.0 mmol/L (3-11) Est Creatinine Clear Calc Drug Dose 66.5 ml/min Estimated GFR () 82.4 Estimated GFR (Non- 71.1 BUN/Creatinine Ratio 12.7 (10-20) Calcium Level 9.6 mg/dl (8.5-10.1) Troponin I < 0.015 ng/ml (0-0.045) Laboratory results as stated above per my review. ECG Indication: syncope Rate (beats per minute): 66 Rhythm: normal sinus Findings: no acute ischemic change, no ectopy ED Course 1417: Past medical records reviewed. The patient was evaluated in room A2. A complete history and physical examination was performed. 1646: I reassessed the patient at this time. He is feeling better and resting comfortably. I discussed the results and treatment plan with the patient. I answered all pertaining questions that he had. He expressed understanding and verbalized agreement. The patient will be discharged home. Medical Decision Nurses notes reviewed. Medical history sheet reviewed. Differential diagnosis includes but is not limited to: vasovagal syncope, cough syncope, CVA, TIA, seizure, arrhythmia. This is one of several episodes where patient has passed out. He has had full workups in the past including imaging studies and a Holter monitor for a month. The patient had additional lab work done today. Please see above. The patient is not anemic or hypoglycemic. Electrolytes appear to be within normal range. Troponin is not elevated. He had orthostatic vital signs and an ambulatory trial all of which he passed without difficulty. The patient now feels back to his normal state. There was no evidence of any recent seizure activity. Because he's had recent imaging studies for the same problem I do not believe they need to be repeated now. The patient was encouraged to follow-up with his family physician. I have instituted no new medications. Medication Reconcilliation Current Medication List: was personally reviewed by me Blood Pressure Screening Patient's blood pressure: Normal blood pressure Impression Primary Impression: Syncope Scribe Attestation The scribe's documentation has been prepared under my direction and personally reviewed by me in its entirety. I confirm that the note above accurately reflects all work, treatment, procedures, and medical decision making performed by me. Departure Information Dispostion Home / Self-Care Referrals No Doctor, Assigned (PCP) Patient Instructions My [facility] Additional Instructions Continue all of your current medications as prescribed. Follow-up with your family physician within the next 10 days.
[2017-02-24 17:17] VITALS: BP 111/77; PULSE 67; O2SAT 97
== END 2017-02-24 17:18 | disposition home or self-care (01) ==
LOC: C.EDB 13:21 → C.EDA 17:18
DX: R55 Syncope and collapse (principal); F41.9 Anxiety disorder, unspecified; F32.9 Major depressive disorder, single episode, unspecified; Z79.82 Long term (current) use of aspirin; Z79.899 Other long term (current) drug therapy